=== PATIENT | female | born 1960 | race Asian ===

== ENCOUNTER 2017-10-29 12:54 | Outpatient (CLI) | payer OTHER | END 2017-10-29 12:55 | disposition home or self-care (01) | LOC: BICMAMMO 12:54 | PROVIDERS: ATTEND Obstetrics & Gynecology | DX: Z12.31 Encounter for screening mammogram for malignant neoplasm of breast (principal); Z13.820 Encounter for screening for osteoporosis; M85.80 Other specified disorders of bone density and structure, unspecified site; N64.89 Other specified disorders of breast | CPT/HCPCS: 77063; 77067; 77080 ==

== ENCOUNTER 2017-11-15 14:33 | Outpatient (CLI) | payer OTHER | END 2017-11-15 14:34 | disposition home or self-care (01) | LOC: BICMAMMO 14:33 | PROVIDERS: ATTEND Obstetrics & Gynecology | DX: N64.89 Other specified disorders of breast (principal); N60.02 Solitary cyst of left breast | CPT/HCPCS: G0279 ==

== ENCOUNTER 2020-03-31 09:04 | Outpatient (CLI) | payer OTHER ==
--- NOTE | 2020-03-31 14:18 | ULT ---
THYROID ULTRASOUND: Date: 03/31/2020 HISTORY: Thyroid nodule noted on carotid ultrasound. FINDINGS: Thyroid isthmus measures 0.9 cm. Right thyroid lobe measures 6.3 x 2.2 x 2.9 cm. Left thyroid lobe measures 6.0 x 2.3 x 2.7 cm. Thyroid nodules: There are multiple solid as well as mixed solid/cystic nodules involving the left and right thyroid l obe. Largest nodule in the right thyroid lobe is in the mid pole measuring 2.2 x 1.7 x 2.0 cm. Larges t nodule in the left thyroid lobe measures 2.2 x 2.8 x 2.4 cm. IMPRESSION: Multinodular thyroid gland. Largest solid nodule in the left and right thyroid lobe have a TI-RADS sc ore of T4, mildly suspicious. Fine needle aspiration of the largest dominant solid nodules in the lef t and right thyroid lobe are recommended. With regard to the remaining thyroid nodules, follow-up ultrasound in 1 year is recommended. POS: [facility]IL[facility]
== END 2020-03-31 09:05 | disposition home or self-care (01) ==
LOC: BICCT 09:04
PROVIDERS: ATTEND Internal Medicine
DX: E04.2 Nontoxic multinodular goiter (principal)
CPT/HCPCS: 76536

== ENCOUNTER 2020-05-16 10:09 | Outpatient (CLI) | payer OTHER ==
[2020-05-16 23:15] LABS: SARS-CoV-2 MS2 Positive; SARS-CoV-2 N Gene Negative; SARS-CoV-2 S Gene Negative; SARS-CoV-2 by NAA Not Detected (NotDetected); SARS-CoV-2 orf1ab Negative
== END 2020-05-16 10:10 | disposition home or self-care (01) ==
LOC: LABBT 10:09
PROVIDERS: ATTEND Student in an Organized Health Care Education/Training Program
DX: Z01.812 Encounter for preprocedural laboratory examination (principal); Z20.828 Contact with and (suspected) exposure to other viral communicable diseases
CPT/HCPCS: 87635; U0003

== ENCOUNTER → 2020-05-19 | Day surgery (SDC) | payer OTHER ==
[2020-05-18 14:33] VITALS: BMI 26.5
[~2020-05-19] MED LIST: Lidocaine 1% PF 5 ML VIAL ONE; Sodium Bicarbonate 2.5 MEQ/5 ML VIAL ONE
[2020-05-19 13:41] VITALS: BP 130/76; TEMP 98.5
--- NOTE | 2020-05-19 15:37 | ULT ---
Sonographic guided FNA left thyroid lobe nodule Sonographic guided FNA right thyroid lobe nodule HISTORY: Goiter. Bilateral suspicious R wave lobe nodules. FINDINGS: After explaining the procedure and answering all questions, sonographic survey again shows a large heterogeneous masses involving each thyroid lobe. Sterile technique, buffered local anesthesia, sonographic guidance, and an anterior approach were use d to carefully advance a 25-gauge needle into the heterogeneous dominant mass of the left thyroid lobe, directed towards the oval less heterogeneous hypoechoic component. FNA samples obtained and sub mitted to pathology for processing. A total of 4 passes were made. Sterile technique, buffered local anesthesia, sonographic guidance, and an anterior approach were use d to carefully advance a 25-gauge needle into the heterogeneous dominant mass of the right thyroid lobe, directed towards the oval less heterogeneous hypoechoic component. FNA samples obtained and sub mitted to pathology for processing. A total of 4 passes were made. No evidence of complication. Patient tolerated the procedure well and was dismissed in good condition . IMPRESSION : Technically successful sonographic guided FNA of large bilateral thyroid lobe masses. Pathology is pe nding.
--- NOTE | 2020-05-20 12:33 | ULT ---
Sonographic guided FNA left thyroid lobe nodule Sonographic guided FNA right thyroid lobe nodule HISTORY: Goiter. Bilateral suspicious R wave lobe nodules. FINDINGS: After explaining the procedure and answering all questions, sonographic survey again shows a large heterogeneous masses involving each thyroid lobe. Sterile technique, buffered local anesthesia, sonographic guidance, and an anterior approach were use d to carefully advance a 25-gauge needle into the heterogeneous dominant mass of the left thyroid lobe, directed towards the oval less heterogeneous hypoechoic component. FNA samples obtained and sub mitted to pathology for processing. A total of 4 passes were made. Sterile technique, buffered local anesthesia, sonographic guidance, and an anterior approach were use d to carefully advance a 25-gauge needle into the heterogeneous dominant mass of the right thyroid lobe, directed towards the oval less heterogeneous hypoechoic component. FNA samples obtained and sub mitted to pathology for processing. A total of 4 passes were made. No evidence of complication. Patient tolerated the procedure well and was dismissed in good condition . IMPRESSION : Technically successful sonographic guided FNA of large bilateral thyroid lobe masses. Pathology is pe nding. Transcribed Date/Time: 05/20/2020 12:32 PM
== END ==
LOC: ULT 12:40
PROVIDERS: ATTEND Internal Medicine
PROC: 0GBH3ZX Excision of Right Thyroid Gland Lobe, Percutaneous Approach, Diagnostic (ICD-10-PCS; principal; 2020-05-19)
PROC: 0GBG3ZX Excision of Left Thyroid Gland Lobe, Percutaneous Approach, Diagnostic (ICD-10-PCS; principal; 2020-05-19)
DX: E04.2 Nontoxic multinodular goiter (principal); Z79.82 Long term (current) use of aspirin; Z79.899 Other long term (current) drug therapy; Z88.8 Allergy status to other drugs, medicaments and biological substances
CPT/HCPCS: 60100; 76942; 88173

== ENCOUNTER 2021-02-27 10:03 | Outpatient (CLI) | payer OTHER | END 2021-02-27 10:04 | disposition home or self-care (01) | LOC: BICMAMMO 10:03 | PROVIDERS: ATTEND Obstetrics & Gynecology | DX: Z12.31 Encounter for screening mammogram for malignant neoplasm of breast (principal) | CPT/HCPCS: 77063; 77067 ==

== ENCOUNTER 2023-01-25 09:51 | Outpatient (CLI) | payer OTHER | END 2023-01-25 09:52 | disposition home or self-care (01) | LOC: BICMAMMO 09:51 | PROVIDERS: ATTEND Obstetrics & Gynecology | DX: Z12.31 Encounter for screening mammogram for malignant neoplasm of breast (principal) | CPT/HCPCS: 77063; 77067 ==

== ENCOUNTER 2024-04-28 12:34 | Outpatient (CLI) | payer BC | END 2024-04-28 12:35 | disposition home or self-care (01) | LOC: ULT 12:34 | PROVIDERS: ATTEND Otolaryngology Plastic Surgery within the Head & Neck | DX: E04.2 Nontoxic multinodular goiter (principal) | CPT/HCPCS: 76536 ==

== ENCOUNTER 2025-03-03 10:14 | Outpatient (CLI) | payer BC | END 2025-03-03 10:15 | disposition home or self-care (01) | LOC: BICMAMMO 10:14 | PROVIDERS: ATTEND Internal Medicine | DX: Z12.31 Encounter for screening mammogram for malignant neoplasm of breast (principal) | CPT/HCPCS: 77063; 77067 ==